=== PATIENT | male | born 1935 | race Asian ===

== ENCOUNTER 2018-09-14 13:08 | Emergency (ER) | payer OTHER ==
[2018-09-14] MEDS: CEFEPIME 2GM/50 ML (PMX) 50 ML IVPB (13:17)
[2018-09-14] MEDS: SODIUM CHLORIDE 0.9% 1L BAG IV* (13:20)
[2018-09-14] MEDS: DILTIAZEM-D5W 125MG/125ML DRIP 125 ML IV (13:28)
[2018-09-14] MEDS: VANCOMYCIN 1 GM (PMX) 250 ML IVPB (13:30)
[2018-09-14] MEDS: PIPER-TAZO 3.375 GM IV (PMX) 100 ML IVPB (13:30)
[2018-09-14 13:31] LABS: ADD MAN DIFF? NO
[2018-09-14 13:37] LABS: WHITE BLOOD COUNT 10.9 10^3/ul (4.8-10.8)
[2018-09-14 13:37] LABS: ABNORMAL IP MESSAGE 1; BASOPHILS % 0.4 % (0.0-2.0); EOSINOPHILS # 0.1 10^3/ul (0.0-0.5); EOSINOPHILS % 0.8 % (0.0-7.0); HEMATOCRIT 42.7 % (42.0-52.0); LYMPHOCYTES # 1.7 10^3/ul (0.8-2.9); LYMPHOCYTES % 15.7 % (15.0-51.0); MEAN CORPUSCULAR HEMOGLOBIN 31.8 pg (29.0-33.0); MEAN CORPUSCULAR HGB CONC 32.8 g/dl (32.0-37.0); MEAN PLATELET VOLUME 10.2 fl (7.4-10.4); MONOCYTE # 1.9 10^3/ul (0.3-0.9); MONOCYTES % 17.8 % (0.0-11.0); NEUTROPHILS % 64.8 % (39.0-77.0); PLATELET COUNT 160 10^3/UL (140-415); POSITIVE DIFF @See below; RED CELL DISTRIBUTION WIDTH 14.2 % (11.5-14.5)
[2018-09-14] MEDS: ASPIRIN 325 MG TAB PO (13:48)
[2018-09-14 13:51] LABS: INR 1.01; PROTIME 13.4 Sec (11.9-14.9)
[2018-09-14 13:52] LABS: PARTIAL THROMBOPLASTIN TIME 41.8 Sec (23.0-35.0)
[2018-09-14 13:57] LABS: ALANINE AMINOTRANSFERASE 32 IU/L (13-69); ALBUMIN/GLOBULIN RATIO 1.46; ALKALINE PHOSPHATASE 82 IU/L (42-121); AMYLASE 185 U/L (11-123); ANION GAP 17 (5-13); ASPARTATE AMINO TRANSFERASE 51 IU/L (15-46); BILIRUBIN,INDIRECT 0.5 mg/dl (0-1.1); BILIRUBIN,TOTAL 0.5 mg/dl (0.2-1.3); BLOOD UREA NITROGEN 30 mg/dl (7-20); CALCIUM 9.9 mg/dl (8.4-10.2); CARBON DIOXIDE 24 mmol/L (21-31); CHLORIDE 102 mmol/L (97-110); GLUCOSE 147 mg/dl (70-220); LIPASE 572 U/L (23-300); POTASSIUM 3.7 mmol/L (3.5-5.1); SODIUM 143 mmol/L (135-144); TOTAL PROTEIN 7.9 g/dl (6.1-8.1)
[2018-09-14] MEDS: DILTIAZEM 25 MG INJ IV (14:02)
[2018-09-14] MEDS: LEVALBUTEROL (NEB) 1.25 MG/0.5 ML AMP INH (14:05)
[2018-09-14] MEDS: IPRATROPIUM (NEB) 0.5 MG/2.5 ML AMP INH (14:05)
[2018-09-14 14:08] LABS: B-TYPE NATRIURETIC PEPTIDE 6910 PG/ML (0-450)
[2018-09-14 14:16] LABS: ALBUMIN 4.7 g/dl (3.3-4.9)
[2018-09-14] MEDS: ACETAMINOPHEN 500 MG TAB PO (14:19)
[2018-09-14 14:33] LABS: ADD UMIC YES; UR ASCORBIC ACID NEGATIVE (NEGATIVE); UR BILIRUBIN (Dip) NEGATIVE (NEGATIVE); UR BLOOD (Dip) NEGATIVE (NEGATIVE); UR CLARITY CLEAR (CLEAR); UR COLOR YELLOW (YELLOW); UR GLUCOSE (Dip) NEGATIVE (NEGATIVE); UR KETONES (Dip) NEGATIVE (NEGATIVE); UR LEUKOCYTE ESTERASE (Dip) NEGATIVE Leu/ul (NEGATIVE); UR NITRITE (Dip) NEGATIVE (NEGATIVE); UR RBC 1 /HPF (0-5); UR TOTAL PROTEIN (Dip) 1+ mg/dl (NEGATIVE); UR UROBILINOGEN (Dip) NEGATIVE (NEGATIVE); UR WBC 1 /HPF (0-5)
[2018-09-14] MEDS: METOPROLOL 5 MG INJ IV (15:12)
[2018-09-14 15:16] LABS: DIGOXIN 0.9 ng/ml (1.0-2.0)
[2018-09-14 15:38] LABS: AADO2 Arterial 172.6 mmHg (7.0-24.0); Allen Test ACCEPTAB; Arterial Base Excess -5.3 mmol/L (-3.0-3); Arterial Blood Gas Oxygen Sat 98.9 mmHG (95.0-100.0); Arterial COHb 0.3 % (0.0-3.0); Arterial Fraction of Oxyhgb 98.4 % (93.0-99.0); Arterial HCO3 18.8 mmol/L (22.0-26.0); Arterial MetHb 0.2 % (0.0-1.5); Arterial pCO2 32.4 mmhg (35-45); MODE MASK - SIMPLE; Site Right Radial
[2018-09-14] MEDS: DIGOXIN 0.25 MG TAB PO (17:10)
[2018-09-14 18:03] LABS: LACTIC ACID 6.3 mmol/L (0.5-2.0)
== END 2018-09-14 19:30 | disposition short-term general hospital (02) ==
LOC: E/R 13:08
DX: A41.9 Sepsis, unspecified organism (principal); I50.9 Heart failure, unspecified; I21.4 Non-ST elevation (NSTEMI) myocardial infarction
CPT/HCPCS: 36600; 71045; 80053; 80162; 81001; 82150; 82803; 83605; 83690; 83880; 84484; 85025; 85610; 85730; 87040-91; 87086; 87400; 93005; 94644; 96374; 96375; 99291-25